=== PATIENT | male | born 1950 | race Caucasian/White ===

== ENCOUNTER 2019-07-04 09:44 | Emergency (ER) | payer OTHER ==
[~2019-07-04] VITALS: Ht 188 cm; Wt 90.7 kg
[2019-07-04 10:58] VITALS: Ht 188 cm; Wt 90.7 kg
[2019-07-04 13:15] VITALS: BP 128/65
== END 2019-07-04 13:15 | disposition home or self-care (01) ==
LOC: ED 09:44
DX: B02.9 Zoster without complications (principal); H92.01 Otalgia, right ear
CPT/HCPCS: J0696; J1100; J2270; J2405; J7060